=== PATIENT | female | born 1950 | race Hispanic/Latino ===

== ENCOUNTER → 2024-03-07 | Outpatient (CLI) | payer MEDICARE ==
[~2024-03-07] MED LIST: GADOTERATE MEGLUMINE 10 MMOL/20 ML VIAL IV ONE
--- NOTE | 2024-03-07 16:35 | HMCIMG ---
Exam Type: MR KNEE LEFT WWO Clinical Information: PAIN Comparison: None Technique: MRI of the knee was done with triplane localizer, axial T2 as well as sagittal proton density T2, T1, and fat-saturated T2. In addition, coronal T1 and coronal fat-saturated spin-echo sequences are available for review. FINDINGS: There is a complex tear of the posterior horn of the medial meniscus with inferior articular surface involvement. No other meniscal tears are present. Subchondral cysts are noted, largest one medially located, with one involving the lateral femoral condyle. In addition, inferior pole patellar subchondral cysts seen as well. There is a joint effusion and there is significant medial condylar marrow edema. The cruciate and collateral ligaments are intact. No periarticular soft tissue abnormalities are seen. There are no other gross abnormalities. IMPRESSION: Complex tear posterior horn medial meniscus with inferior articular surface involvement. Subchondral cysts are noted, largest one medially located, with one involving the lateral femoral condyle. In addition, inferior pole patellar subchondral cysts seen as well. There is a joint effusion and there is significant medial condylar marrow edema.
== END | disposition home or self-care (01) ==
LOC: RAH 14:49
PROVIDERS: ATTEND Family Medicine
DX: S83.232A Complex tear of medial meniscus, current injury, left knee, initial encounter (principal); M25.462 Effusion, left knee; M25.562 Pain in left knee; M89.9 Disorder of bone, unspecified; X58.XXXA Exposure to other specified factors, initial encounter; Y93.89 Activity, other specified; Y92.89 Other specified places as the place of occurrence of the external cause; Y99.8 Other external cause status
CPT/HCPCS: 73723; A9575